=== PATIENT | female | born 1980 | race Caucasian/White ===

== ENCOUNTER 2024-06-02 14:40 | Emergency (ER) | payer SELFPAY | END 2024-06-02 16:22 | disposition home or self-care (01) | LOC: NAV ERS 14:40 | DX: S23.41XA Sprain of ribs, initial encounter (principal); M54.50 Low back pain, unspecified; F17.290 Nicotine dependence, other tobacco product, uncomplicated; W18.12XA Fall from or off toilet with subsequent striking against object, initial encounter; Y93.89 Activity, other specified | CPT/HCPCS: 99283 ==